=== PATIENT | female | born 1965 | race Caucasian/White ===

== ENCOUNTER 2016-08-15 13:35 | Emergency (ER) | payer SELFPAY ==
[~2016-08-15] VITALS: Ht 149.9 cm; Wt 78.0 kg
[2016-08-15 14:10] VITALS: BP 130/84
[2016-08-15 14:28] LABS: BILIRUBIN,URINE NEGATIVE (NEG); GLUCOSE,URINE NEGATIVE (NEG); NITRITE,URINE NEGATIVE (NEG); PROTEIN,URINE NEGATIVE (NEG-TRACE); UROBILINOGEN,URINE 0.2 mg/dL (0.2 mg/dL)
--- NOTE | 2016-08-15 14:59 | PHYS DOC ---
Past Medical History Past Medical History: No Pertinent History Past Surgical History: Hysterectomy Alcohol Use: None Drug Use: None Adult General Chief Complaint Chief Complaint: SEXUALLY TRANSMITTED DISEASE HPI HPI Patient is a 51 year old female presents emergency department stating that Saturday she had noted that she was having vaginal discharge and was green in color. She states that she is unsure whether he had an odor of the police that there was a slight smell. She states that she's got some vaginal itching. She denies any urinary symptoms. She denies any nausea vomiting. Patient states she has sexually active with one partner. Review of Systems Review of Systems Constitutional: Denies fever or chills [] Eyes: Denies change in visual acuity, redness, or eye pain [] HENT: Denies nasal congestion or sore throat [] Respiratory: Denies cough or shortness of breath [] Cardiovascular: No additional information not addressed in HPI [] GI: Denies abdominal pain, nausea, vomiting, bloody stools or diarrhea [] : Denies dysuria or hematuria. Patient complaint vaginal discharge that is green in color. Musculoskeletal: Denies back pain or joint pain [] Integument: Denies rash or skin lesions [] Neurologic: Denies headache, focal weakness or sensory changes [] Current Medications Current Medications Current Medications Medications (Trade) Dose Ordered Sig/[place] Start Time Stop Time Status Last Admin Dose Admin Azithromycin (Zithromax) 1,000 mg 1X ONCE 08/15/16 15:00 08/15/16 15:01 DC Ceftriaxone Sodium (Rocephin Im) 250 mg 1X ONCE 08/15/16 15:00 08/15/16 15:01 DC Metronidazole (Flagyl) 2,000 mg 1X ONCE 08/15/16 15:00 08/15/16 15:01 DC Allergies Allergies Allergies Coded Allergies Type Severity Reaction Last Updated Verified Penicillins Allergy Intermediate 08/15/16 Yes bacitracin Allergy Intermediate 08/15/16 Yes neomycin Allergy Intermediate 08/15/16 Yes polymyxin B Allergy Intermediate 08/15/16 Yes Physical Exam Physical Exam Constitutional: Well developed, well nourished, no acute distress, non-toxic appearance. [] HENT: Normocephalic, atraumatic, bilateral external ears normal, oropharynx moist, no oral exudates, nose normal. [] Eyes: PERRLA, EOMI, conjunctiva normal, no discharge. [] Neck: Normal range of motion, no tenderness, supple, no stridor. [] Cardiovascular:Heart rate regular rhythm Lungs & Thorax: no respiratory distress Skin: Warm, dry, no erythema, no rash. [] Back: No tenderness Extremities: No tenderness, no cyanosis, no clubbing, ROM intact, no edema. [] Neurologic: Alert and oriented X 3, normal motor function, normal sensory function, no focal deficits noted. [] Psychologic: Affect normal, judgement normal, mood normal. Physical exam: Speculum exam patient was noted to have yellow foul-smelling discharge in the vaginal vault. Manual exam no adnexal or CMT noted. [] Current Patient Data Vital Signs Vital Signs Date Time Temp Pulse Resp B/P Pulse Ox O2 Delivery O2 Flow Rate FiO2 08/15/16 14:10 98.0 71 20 94 Room Air 98.0 Lab Values Laboratory Tests Test 08/15/16 14:15 Urine Collection Type Unknown Urine Color Yellow Urine Clarity Cloudy Urine pH 7.0 Urine Specific [place] 1.015 Urine Protein Negativemg/dL (NEG-TRACE) Urine Glucose (UA) Negativemg/dL (NEG) Urine Ketones (Stick) Negativemg/dL (NEG) Urine Blood Negative (NEG) Urine Nitrite Negative (NEG) Urine Bilirubin Negative (NEG) Urine Urobilinogen Dipstick 0.2mg/dL (0.2 mg/dL) Urine Leukocyte Esterase Large (NEG) Urine RBC 0/HPF (0-2) Urine WBC 11-20/HPF (0-4) Urine Squamous Epithelial Cells Few/LPF Urine Transitional Epithelial Cells Few/LPF Urine Bacteria Few/HPF (0-FEW) Microbiology 08/15/16 Wet Prep - Final, Complete EKG EKG [] Radiology/Procedures Radiology/Procedures [] Course & Med Decision Making Course & Med Decision Making Pertinent Labs and Imaging studies reviewed. (See chart for details) Patient was treated with Rocephin and Zithromax and Flagyl here in the emergency department. Cultures are still pending for sexually transmitted infection. Patient states that she has requested that her move out and has filed for divorce. Patient's wet positive for bacterial vaginosis. She'll also be sent home on Flagyl. Recommended no sexual intercourse for the next 2 weeks. Provided patient with discharge instructions treatment regimens and follow-up recommendations. Signs and symptoms to return back to emergency department has been provided. [] Dragon Disclaimer Dragon Disclaimer This electronic medical record was generated, in whole or in part, using a voice recognition dictation system. Departure Departure Impression: Primary Impression: BV (bacterial vaginosis) Disposition: 01 HOME, SELF-CARE Condition: STABLE Referrals: NO PCP (PCP) Patient Instructions: Bacterial Vaginosis, [id number] Additional Instructions: Activity as tolerated Medication as prescribed Avoid drinking alcohol with Flagyl as this will cause abdominal pain and discomfort. Avoid sexual intercourse for the next 2 weeks Followup with primary care provider in 3-5 days Return to emergency department as needed for signs and symptoms that become worse. Scripts Metronidazole (Flagyl)500 Mg Tablet1 Tab PO BID #14 TAB Prov:ZEYNEP MURPHY NP 08/15/16 ZEYNEP MURPHY NP Aug 15, 2016 14:59
[2016-08-15] MEDS ORDERED: CEFTRIAXONE IM 250 MG VIAL. IM ONE (15:00)
[2016-08-15] MEDS ORDERED: METRONIDAZOLE 500 MG TABLET. PO ONE (15:00)
[2016-08-15] MEDS ORDERED: AZITHROMYCIN 250 MG TABLET PO ONE (15:00)
[2016-08-15 15:05] LABS: BACTERIA,URINE FEW /HPF (0-FEW); RBC,URINE 0 /HPF (0-2); SQUAMOUS EPITHELIAL CELL,UR FEW /LPF
[2016-08-15] MEDS ORDERED: METR500T PO (15:30)
== END 2016-08-15 16:10 | disposition home or self-care (01) ==
LOC: ER 13:35
DX: N76.0 Acute vaginitis (principal); Z88.1 Allergy status to other antibiotic agents; Z88.0 Allergy status to penicillin; Z90.710 Acquired absence of both cervix and uterus
CPT/HCPCS: 81001; 87086; 87491; 87591; 96372; 99284; J0696; Q0111; Q0144